=== PATIENT | male | born 1985 | race African-American/Black ===

== ENCOUNTER 2017-06-14 23:05 | Emergency (ER) | payer OTHER ==
--- NOTE | 2017-06-15 02:07 | ED ---
Skin Complaint - HPI Summary HPI Summary: Pt is a prisoner at [employer] - here w/ cut to Lt cheek earlier today. He is not sure how this happened. Denies other injuries as a result of this injury. He is unsure of what he was cut with here. Went to medical area - wound closed with steristrips and sent here. Tetanus is UTD. No known h/o MRSA. - History of Current Complaint Chief Complaint: EDLacSutureRecheck Time Seen by Provider: 06/15/17 00:33 Stated Complaint: LT CHEEK LAC Hx Obtained From: Patient Pain Intensity: 2 - Allergy/Home Medications Allergies/Adverse Reactions: Allergies Allergy/AdvReac Type Severity Reaction Status Date / Time No Known Allergies Allergy Verified 06/14/17 23:19 PMH/Surg Hx/FS Hx/Imm Hx Previously Healthy: Yes Endocrine/Hematology History: Denies: Hx Anticoagulant Therapy, Hx Blood Disorders, Hx Unexplained Bleeding - Immunization History Immunizations Up to Date: Yes Infectious Disease History: No Infectious Disease History: Denies: Hx of Known/Suspected MRSA, Traveled Outside the in Last 30 Days - Family History Known Family History: Positive: None - Social History Occupation: Employed Part-time - wheelchair attendant at [employer] Lives: [facility] - [employer] [facility] Alcohol Use: None Hx Substance Use: No Substance Use Type: Reports: None Hx Tobacco Use: No Review of Systems Constitutional: Negative Negative: Chest Pain Negative: Shortness Of Breath Negative: Vomiting, Nausea Positive: no symptoms reported Musculoskeletal: Negative Skin: Other - see HPI Neurological: Negative Psychological: Normal All Other Systems Reviewed And Are Negative: Yes Physical Exam Triage Information Reviewed: Yes Vital Signs On Initial Exam: Initial Vitals Temp Pulse Resp BP Pulse Ox 98.4 F 55 16 151/85 98 06/14/17 23:16 06/14/17 23:16 06/14/17 23:16 06/14/17 23:16 06/14/17 23:16 Vital Signs Reviewed: Yes Appearance: Positive: Well-Appearing, No Pain Distress, Well-Nourished Skin: Positive: Warm - linear laceration over Lt side of face - preauricular region, along jaw line to just before mental process - subcutaneous tissue observed - blood oozing - no vessels/nerves observed Head/Face: Positive: Normal Head/Face Inspection Eyes: Positive: Normal, EOMI, Conjunctiva Clear ENT: Positive: Hearing grossly normal, Pharynx normal - mucosa moist Respiratory/Lung Sounds: Positive: Breath Sounds Present Cardiovascular: Positive: Normal Musculoskeletal: Positive: Normal, Strength/ROM Intact Neurological: Positive: Normal, Sensory/Motor Intact, Alert, Oriented to Person Place, Time, CN Intact II-III Psychiatric: Positive: Normal - [place] Coma Scale Coma Scale Total: 15 Procedures - Laceration/Wound Repair 1 Location: face - Lt cheek Description: Linear Anesthesia: Local, Marcaine - + epi - 10 cc Length, Depth and Shape: 7.5cm x 2mm Betadine Prep?: Yes Irrigated w/ Saline (ccs): 100 - hibaclens w/ sterile water Laceration/Wound Explored: clean Closure: Single Layer Suture Type: Prolene - 6-0 Number of Sutures: 2 - 1 simple interrupted, 1 running Layer Closure?: No Sterile Dressing Applied?: Yes - triple anbx ointment Diagnostics - Vital Signs Vital Signs Temp Pulse Resp BP Pulse Ox 06/14/17 23:16 98.4 F 55 16 151/85 98 - Laboratory Lab Statement: Any lab studies that have been ordered have been reviewed, and results considered in the medical decision making process. Course/Dx - Diagnoses Provider Diagnoses: Facial laceration Discharge - Discharge Plan Condition: Stable Disposition: HOME Patient Education Materials: Facial Laceration (ED), Care For Your Stitches (ED ) Referrals: Non Staff,Doctor [Primary Care Provider] - Additional Instructions: Wash wound daily gently with soap and water - rinse well and pat dry with clean cloth then reapply triple antibiotic ointment. Follow-up with PCP in 5 days for wound check and suture removal You may apply ice and take ibuprofen with food for pain *If you develop redness, swelling, purulent drainage, fever, chills, seek medical attention as soon as possible
[2017-06-15 03:03] VITALS: BP 155/81
== END 2017-06-15 03:03 | disposition home or self-care (01) ==
LOC: ED 23:05
DX: S01.412A Laceration without foreign body of left cheek and temporomandibular area, initial encounter (principal); X58.XXXA Exposure to other specified factors, initial encounter; Y93.9 Activity, unspecified; Y92.149 Unspecified place in prison as the place of occurrence of the external cause
CPT/HCPCS: 12002; 99282